=== PATIENT | female | born 1985 | race Hispanic/Latino ===

== ENCOUNTER 2017-12-26 10:04 | Emergency (ER) | payer OTHER ==
[~2017-12-26] VITALS: Ht 149.9 cm; Wt 56.7 kg
[2017-12-26] MEDS ORDERED: ONDANSETRON HCL INJ 2 MG/ML VIAL IV STA (10:23)
[2017-12-26] MEDS ORDERED: MORPHINE SULFATE 4 MG/ML SYR IV STA (10:23)
== END 2017-12-26 14:55 | disposition home or self-care (01) ==
LOC: FSED 10:04
DX: N20.0 Calculus of kidney (principal)
CPT/HCPCS: 74177; 76830; 76857; 80048; 80076; 81003; 81025; 85025; 99284; J2270; J2405